=== PATIENT | female | born 1955 | race Caucasian/White ===

== ENCOUNTER → 2019-06-14 | Day surgery (SDC) | payer OTHER, MEDICAID ==
[~2019-06-14] MED LIST: ALPR1TAB2 PO; AMLO10TA4 PO; AMOX1TAB61 PO; ATOR10TA PO; BACL20TA PO; CYCL5TAB PO; DICY20TA30 PO; DULA1.5P SQ; DULO60CA6 PO; ESOM40CA PO; ESTR0.3T PO; FERR325T14 PO; FURO40TA4 PO; GLIP10TA13 PO; HYDR-2769 PO; HYDR25TA PO; HYDROmorphone 2 MG/ML VIAL IV PRN; INSU100V8 SQ; IV RINGERS,LACTATED 1000ML 1,000 ML IV SCH; LEVO150T5 PO; MAGN400T5 PO; METF500T16 PO; METO25TA2 PO; METO5TAB4 PO; MORPHINE SULFATE 2 MG/ML VIAL. IV PRN; OLME1TAB25 PO; ONDANSETRON PF 4 MG/2 ML VIAL. IV PRN; PANT40TA77 PO; POTA10TA12 PO; PREG200C PO; PROCHLORPERAZINE 10 MG/2 ML VIAL. IV PRN; PROM12.58 PO; PROPOFOL 20 ML IV ONE; SUCR1TAB PO; VARE0.5T PO; fentaNYL PF VIAL 100 MCG/2 ML VIAL IV PRN
[2019-06-14 08:50] VITALS: BP 161/96
== END ==
LOC: ENDOS 06:51
PROVIDERS: ATTEND Internal Medicine Gastroenterology
DX: R11.0 Nausea (principal); K29.50 Unspecified chronic gastritis without bleeding; K58.9 Irritable bowel syndrome, unspecified; F32.9 Major depressive disorder, single episode, unspecified; E11.9 Type 2 diabetes mellitus without complications; M79.7 Fibromyalgia; K21.9 Gastro-esophageal reflux disease without esophagitis; E78.00 Pure hypercholesterolemia, unspecified; Z87.891 Personal history of nicotine dependence; Z79.4 Long term (current) use of insulin; Z98.890 Other specified postprocedural states
CPT/HCPCS: 43235; J2704